=== PATIENT | female | born 1950 | race African-American/Black ===

== ENCOUNTER 2022-09-29 21:41 | Inpatient (IN) ==
[2022-09-29] MEDS ORDERED: ONDANSETRON 4 MG/2 ML VIAL IV STA (22:01)
[2022-09-29] MEDS ORDERED: FUROSEMIDE 100 MG/10 ML VIAL IV STA (22:01)
[2022-09-29] MEDS ORDERED: methylPREDNISolone SOD SUC 125 MG/2 ML VIAL IV STA (22:01)
[2022-09-29] MEDS ORDERED: NITROGLYCERIN 2% OINT 1 INCH/GM PACK TOP STA (22:01)
[2022-09-29] MEDS ORDERED: ALBUTEROL/IPRATROPIUM 3 ML NEB RESP TX STA (22:01)
[2022-09-29 22:22] LABS: Basophils # 0.1 10*3/uL (0.0-0.2); Basophils % 0.6 % (0.0-0.8); Eosinophils # 0.2 10*3/uL (0.0-0.87); Hematocrit 28.4 VOL% (35.7-47.0); Hemoglobin 8.7 GM/DL (12.0-16.0); Immature Granulocytes % 0.6 %; Immature Granulocytes Absolute 0.05 #; Lymphocytes # 2.3 10*3/uL (1.4-4.0); Lymphocytes % 27.2 % (21.3-54.2); Mean Corpuscular HGB Conc 30.6 GM/DL (32-36); Mean Corpuscular Volume 85.5 FL (87-102); Monocytes # 0.5 10*3/uL (0.11-0.8); Monocytes % 5.3 % (1.7-12.7); NRBC # 0.03 10*3/uL; Neutrophils % 64.3 % (38.7-73.9); Platelet Count 321 T/CUMM (130-400); Red Blood Count 3.32 MC/CUMM (3.8-5.5); Red Cell Distribution Width 16.1 % (9.3-17.3); White Blood Count 8.5 T/CUMM (4-12)
[2022-09-29 22:36] LABS: Albumin 3.8 G/DL (3.4-5.0); Bilirubin,Total 0.5 MG/DL (0.20-1.00); Calcium 8.5 MG/DL (8.5-10.1); Total Protein 7.1 G/DL (6.4-8.2)
[2022-09-29] MEDS ORDERED: amLODIPine 5 MG TABLET PO STA (22:45)
[2022-09-29 22:47] LABS: INR 1.1; PT Patient Result 11.7 SECS (10.1-12.1); Partial Thromboplastin Time 22.1 SECS (23.7-32.9)
[2022-09-29] MEDS ORDERED: hydrALAZINE 20 MG/1 ML VIAL ONE (23:39)
[2022-09-29] MEDS ORDERED: hydrALAZINE 20 MG/1 ML VIAL IV STA (23:41)
[2022-09-30 00:08] LABS: Thyroid Stimulating Hormone 5.8 uIU/ml (0.358-3.74)
[2022-09-30] MEDS ORDERED: ACETAMINOPHEN 325 MG TABLET PO PRN (00:50)
[2022-09-30] MEDS ORDERED: hydrALAZINE 20 MG/1 ML VIAL IV PRN (00:50)
[2022-09-30] MEDS ORDERED: ONDANSETRON 4 MG/2 ML VIAL IV PRN (00:50)
[2022-09-30] MEDS ORDERED: ALBUTEROL 2.5 MG/3 ML NEB RESP TX PRN (00:50)
[2022-09-30] MEDS ORDERED: tiZANidine 4 MG TABLET PO PRN (00:58)
[2022-09-30 05:51] LABS: Basophils % 0.4 % (0.0-0.8); Hematocrit 28.3 VOL% (35.7-47.0); Hemoglobin 9.4 GM/DL (12.0-16.0); Immature Granulocytes % 1.5 %; Lymphocytes # 0.6 10*3/uL (1.4-4.0); Lymphocytes % 8.9 % (21.3-54.2); Mean Corpuscular HGB Conc 33.2 GM/DL (32-36); Mean Platelet Volume 10.2 FL (9.6-12.0); Monocytes # 0.1 10*3/uL (0.11-0.8); Monocytes % 1.2 % (1.7-12.7); NRBC # 0.04 10*3/uL; Platelet Count 380 T/CUMM (130-400); Red Blood Count 3.41 MC/CUMM (3.8-5.5); Red Cell Distribution Width 16.2 % (9.3-17.3); White Blood Count 6.7 T/CUMM (4-12)
[2022-09-30 06:04] LABS: Basophils % 0.4 % (0.0-0.8); Hematocrit 28.1 VOL% (35.7-47.0); Hemoglobin 8.9 GM/DL (12.0-16.0); Immature Granulocytes % 3.3 %; Immature Granulocytes Absolute 0.22 #; Lymphocytes # 0.6 10*3/uL (1.4-4.0); Lymphocytes % 8.9 % (21.3-54.2); Mean Corpuscular HGB Conc 31.7 GM/DL (32-36); Mean Corpuscular Volume 83.9 FL (87-102); Mean Platelet Volume 10.2 FL (9.6-12.0); Monocytes # 0.1 10*3/uL (0.11-0.8); Monocytes % 1.3 % (1.7-12.7); NRBC # 0.03 10*3/uL; Neutrophils % 86.1 % (38.7-73.9); Platelet Count 349 T/CUMM (130-400); Red Blood Count 3.35 MC/CUMM (3.8-5.5); White Blood Count 6.7 T/CUMM (4-12)
[2022-09-30 06:08] LABS: Calcium 9.1 MG/DL (8.5-10.1); Osmolality,Calculated 283.4 MOS/KG (273-304); Potassium 3.5 MMOL/L (3.5-5.1); Risk Ratio 1.83
[2022-09-30 06:14] LABS: Folate 6.81 NG/ML (5.38-24.0); Vitamin B12 489 PG/ML (211-911)
[2022-09-30 06:19] LABS: Ferritin 12.4 ng/mL (8-252)
[2022-09-30 07:02] LABS: Sedimentation Rate-Westergren 104 MM/HR (0-30)
[2022-09-30] MEDS: ALBUTEROL 2.5 MG/3 ML NEB RESP TX SCH ×3 (07:38→20:06)
[2022-09-30] MEDS ORDERED: FUROSEMIDE 40 MG/4 ML VIAL IV SCH ×2 (09:00)
[2022-09-30] MEDS ORDERED: PANTOPRAZOLE 40 MG TABLET PO SCH (09:00)
[2022-09-30] MEDS: minoxidiL 2.5 MG TABLET PO SCH (09:04)
[2022-09-30] MEDS: hydroCHLOROthiazide 12.5 MG CAPSULE PO SCH (09:04)
[2022-09-30] MEDS: DOCUSATE SODIUM 100 MG CAPSULE PO SCH ×2 (09:04→21:28)
[2022-09-30] MEDS: VALSARTAN 160 MG TABLET PO SCH (09:05)
[2022-09-30] MEDS: ROSUVASTATIN 10 MG TABLET PO SCH (09:05)
[2022-09-30] MEDS: ENOXAPARIN 40 MG/0.4 ML SYRINGE SUBCUT SCH (09:05)
[2022-09-30] MEDS: carvediloL 3.125 MG TABLET PO SCH ×2 (09:05→21:28)
[2022-09-30 09:07] LABS: Hemoglobin A1 (Alkaline) 99.1 % (96.5-98.5); Hemoglobin A2 (Alkaline) 0.9 % (1.5-3.5)
[2022-09-30] MEDS ORDERED: DULoxetine 30 MG CAPSULE PO SCH (21:00)
[2022-09-30] MEDS: FERROUS SULFATE 325 MG TABLET PO SCH (21:28)
[2022-09-30 23:42] LABS: Barbiturates Screen,Urine Negative (Negative); Benzodiazepines Screen,Urine Negative (Negative); Cannabinoid Screen,Urine Negative (Negative); Opiate Screen,Urine Negative (Negative); Phencyclidine Screen,Urine Negative (Negative)
[2022-10-01] MEDS: ALBUTEROL 2.5 MG/3 ML NEB RESP TX SCH ×2 (01:24→07:24)
[2022-10-01 05:50] LABS: Basophils % 0.5 % (0.0-0.8); Eosinophils # 0.1 10*3/uL (0.0-0.87); Eosinophils % 1.5 % (0.00-10.9); Hematocrit 27.3 VOL% (35.7-47.0); Hemoglobin 8.6 GM/DL (12.0-16.0); Immature Granulocytes % 0.3 %; Immature Granulocytes Absolute 0.02 #; Lymphocytes # 2.3 10*3/uL (1.4-4.0); Lymphocytes % 38.3 % (21.3-54.2); Mean Corpuscular HGB Conc 31.5 GM/DL (32-36); Mean Corpuscular Volume 82.7 FL (87-102); Mean Platelet Volume 9.9 FL (9.6-12.0); Monocytes # 0.4 10*3/uL (0.11-0.8); Monocytes % 7.2 % (1.7-12.7); Neutrophils % 52.2 % (38.7-73.9); Platelet Count 386 T/CUMM (130-400); Red Cell Distribution Width 16.5 % (9.3-17.3); White Blood Count 5.9 T/CUMM (4-12)
[2022-10-01 06:05] LABS: Calcium 8.4 MG/DL (8.5-10.1); Osmolality,Calculated 284.5 MOS/KG (273-304); Potassium 3.3 MMOL/L (3.5-5.1)
[2022-10-01 08:31] VITALS: BP 106/69
[2022-10-01] MEDS: DOCUSATE SODIUM 100 MG CAPSULE PO SCH (09:09)
[2022-10-01] MEDS: ROSUVASTATIN 10 MG TABLET PO SCH (09:10)
[2022-10-01] MEDS: carvediloL 3.125 MG TABLET PO SCH (09:10)
[2022-10-01] MEDS: VALSARTAN 160 MG TABLET PO SCH (09:10)
[2022-10-01] MEDS: FERROUS SULFATE 325 MG TABLET PO SCH (09:11)
[2022-10-01] MEDS: hydroCHLOROthiazide 12.5 MG CAPSULE PO SCH (09:11)
[2022-10-01] MEDS: minoxidiL 2.5 MG TABLET PO SCH ×2 (09:13→09:15)
[2022-10-01] MEDS: ENOXAPARIN 40 MG/0.4 ML SYRINGE SUBCUT SCH (09:14)
[2022-10-01] MEDS ORDERED: POTASSIUM CHLORIDE 20 MEQ TABLET PO ONE (11:00)
== END 2022-10-01 11:42 | disposition home or self-care (01) | DRG 641 ==
LOC: N.ED 21:41 → N.5E 09-30 00:50
PROVIDERS: ADMIT Internal Medicine; ATTEND Internal Medicine